=== PATIENT | female | born 1960 | race Asian ===

== ENCOUNTER 2016-09-19 16:10 | Emergency (ER) | payer OTHER ==
[~2016-09-19] VITALS: Ht 162.6 cm; Wt 59.0 kg
[2016-09-19] MEDS ORDERED: Ketorolac 30mg Inj IM ONE (16:45)
[2016-09-19] MEDS ORDERED: ACETAMINOPHEN-1 EAC1 ORAL (18:22)
[2016-09-19] MEDS ORDERED: IBUPROFEN600 MG ORAL (18:22)
[2016-09-19 18:37] VITALS: BP 128/72
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
--- NOTE | 2016-09-21 09:11 | Diagnostic Imaging Report ---
Indication: Pain. Chest trauma Comparison: None Findings: 4 views of the left rib cage obtained. No acute fracture is identified on the left unilateral rib series. There is no pneumothorax, evidence of a lung contusion or hemothorax. Impression: Negative left unilateral rib series
== END 2016-09-19 18:38 | disposition home or self-care (01) ==
LOC: EMR 16:30
DX: S20.212A Contusion of left front wall of thorax, initial encounter (principal); W19.XXXA Unspecified fall, initial encounter; Y92.89 Other specified places as the place of occurrence of the external cause
CPT/HCPCS: 71101; 96372; 99284; J1885

== ENCOUNTER 2019-11-21 11:48 | Emergency (ER) | payer OTHER ==
[~2019-11-21] VITALS: Ht 162.6 cm; Wt 62.6 kg
[~2019-11-21 11:48] MED LIST: ACETAMINOPHEN-1 EAC1 ORAL; IBUPROFEN600 MG ORAL
--- NOTE | 2019-11-21 12:03 | NUR ---
ED Nurse Note: Pt ambulated to ED, c/o groin pain x 3 weeks accompanied with lower back pain and dysuria. Pt appears to be in pain when ambulating. pt was able to provide a small amount of urine for urine sample. urine appears yellow, no odor noted. pt denies vaginal itching, swelling, redness. no buring upon urination.
[2019-11-21 12:05] VITALS: BP 123/82
[2019-11-21 12:27] LABS: APPEARANCE,URINE CLOUDY; COLOR,URINE YELLOW; KETONES,URINE NEGATIVE (NEGATIVE); PROTEIN,URINE 1+ (NEGATIVE)
[2019-11-21 12:28] LABS: BILIRUBIN, URINE NEGATIVE (NEGATIVE); GLUCOSE, URINE (UA) NEGATIVE (NEGATIVE); LEUKOCYTE ESTERASE ,URINE 2+ (NEGATIVE); NITRITE,URINE POSITIVE (NEGATIVE); UROBILINOGEN,URINE NORMAL MG/DL (0.0-1.0)
[2019-11-21] MEDS: cefTRIAXone 1 GM in NS 55 ML IVPB ONE ×2 (12:42→12:55)
[2019-11-21 12:52] LABS: EOSINOPHILS % (AUTO) 0.2 % (0.0-3.0); HEMATOCRIT 43.7 % (37.0-47.0); HEMOGLOBIN 14.3 G/DL (12.0-16.0); LYMPHOCYTES % (AUTO) 14.7 % (20.0-45.0); MEAN CORPUSCULAR VOLUME 86 FL (80-99); MONOCYTES % (AUTO) 4.2 % (1.0-10.0); PLATELET COUNT 234 K/UL (150-450); RED BLOOD COUNT 5.09 M/UL (4.20-5.40); WHITE BLOOD COUNT 10.9 K/UL (4.8-10.8)
--- NOTE | 2019-11-21 12:54 | NUR ---
ED Nurse Note: pt ambulated to restroom to urinate
--- NOTE | 2019-11-21 12:55 | NUR ---
ED Nurse Note: RN wasted Rocephin 1g due to contamination and overrided Rocephin 1g per pharmacy specialist. RN scaned the medication and administered.
[2019-11-21] MEDS ORDERED: Ketorolac 30mg Inj IV ONE (13:00)
[2019-11-21] MEDS ORDERED: Phenazopyridine 200mg tab ORAL ONE (13:00)
[2019-11-21 13:09] LABS: ANION GAP 7 mmol/L (5-15); BLOOD UREA NITROGEN 9 mg/dL (7-18); CARBON DIOXIDE 30 MMOL/L (21-32); CHLORIDE 103 MMOL/L (98-107); CREATININE 0.9 MG/DL (0.55-1.30); POTASSIUM 3.2 MMOL/L (3.5-5.1); SODIUM 139 MMOL/L (136-145)
[2019-11-21 13:16] LABS: ALANINE AMINOTRANSFERASE 15 U/L (12-78); ALBUMIN 3.7 G/DL (3.4-5.0); ALBUMIN/GLOBULIN RATIO 0.9 (1.0-2.7); ALKALINE PHOSPHATASE 76 U/L (46-116); ASPARTATE AMINO TRANSFERASE 14 U/L (15-37); BILIRUBIN,TOTAL 0.8 MG/DL (0.2-1.0)
[2019-11-21] MEDS ORDERED: CEPHALEXIN500 MG ORAL (13:35)
[2019-11-21] MEDS ORDERED: PHENAZOPYRIDIN200 MG ORAL (13:35)
--- NOTE | 2019-11-21 13:45 | NUR ---
ED Nurse Note: Pt wishes to finished half L of NS before DC Addendum: 11/21/19 at 1355 by PDELEON ED Nurse Note: Pt wishes to *finish half L of NS before DC
[2019-11-21 14:05] VITALS: BP 115/79
--- NOTE | 2019-11-21 14:05 | NUR ---
ER DISCHARGE NOTE: Patient is cleared to be discharged per ERMD, pt is aox4, on room air, with stable vital signs. pt was given dc and prescription instructions, pt was able to verbalize understanding, pt id band and iv site removed without complications. pt is able to ambulate with steady gait. pt took all belongings.
--- NOTE | 2019-11-23 14:31 | Emergency Room Report ---
History of Present Illness General Chief Complaint: Female Urogenital Problems Source: Patient Present Illness [facility] Patient 59-year-old female presents after increased dysuria and urinary frequency. She reports having multiple episodes of urinary urgency. She reports having decreased urine output. Denies any fever or flank pain. Reports having suprapubic discomfort. Prior history of chronic back pain. Denies any change in ambulation. Denies any recent trauma. Allergies: Coded Allergies: No Known Allergies (Unverified , 09/19/16) COVID-19 Screening Contact w/high risk pt: No Experienced COVID-19 symptoms?: No COVID-19 Testing performed SOFTWARE RELEASE ENGINEER: No Patient History Past Medical History: see triage record Reviewed Nursing Documentation: PMH: Agreed; PSxH: Agreed Nursing Documentation-PMH Past Medical History: No Stated History Review of Systems All Other Systems: negative except mentioned in HPI Physical Exam Vital Signs Date Time Temp Pulse Resp B/P (MAP) Pulse Ox O2 Delivery O2 Flow Rate FiO2 11/21/19 11:50 99.1 83 20 123/82 (96) 98 Room Air Sp02 EP Interpretation: reviewed, normal General Appearance: normal inspection, well appearing, no apparent distress, alert, GCS 15 Head: atraumatic ENT: normal ENT inspection, hearing grossly normal, normal voice Neck: normal inspection, full range of motion, supple, no bony tend Respiratory: normal inspection, lungs clear, normal breath sounds, no respiratory distress, no retraction, no wheezing Cardiovascular #1: regular rate, rhythm, no edema Gastrointestinal: normal inspection, normal bowel sounds, non tender, soft, no guarding, no hernia Genitourinary: no CVA tenderness Musculoskeletal: normal inspection, back normal, normal range of motion Neurologic: alert, motor strength/tone normal, claim benefit specialist III-XII nml as tested, oriented x3, responsive, speech normal, normal inspection Psychiatric: normal inspection, judgement/insight normal, mood/affect normal Medical Decision Making Diagnostic Impression: Primary Impression: Urinary tract infection Additional Impression: Hypokalemia ER Course Patient presented for dysuria. Differential diagnosis include was not limited to urinary tract infection, pyelonephritis, urinary retention among others. Because of complexity of patient's case laboratory tests were ordered. Patient was given IV fluids as well as IV antibiotics. She was noted to have No evidence of urinary retention on bedside ultrasound. Laboratory testing shows some evidence of urinary tract infection. Patient was given prescription for oral antibiotics after IV Rocephin in the emergency department. She was also noted to have normal white blood count. Patient was advised to have her urine rechecked with primary care physician. She is advised to return if worse. Patient was agreeable with discharge plan. The patient is advised to follow up with primary care doctor in 1-2 days. Patient is advised to return if any worsening condition or if any changes in status that are concerning. This report is dictated with [employer] hand hardener software which may occasionally lead to discrepancies related to use of this software. Labs Test 11/21/19 12:00 11/21/19 12:35 Urine Color Yellow Urine Appearance Cloudy Urine pH 5.0 (4.5-8.0) Urine Specific [place] 1.025 (1.005-1.035) Urine Protein 1+ (NEGATIVE) Urine Glucose (UA) Negative (NEGATIVE) Urine Ketones Negative (NEGATIVE) Urine Blood 4+ (NEGATIVE) Urine Nitrite Positive (NEGATIVE) Urine Bilirubin Negative (NEGATIVE) Urine Urobilinogen Normal MG/DL (0.0-1.0) Urine Leukocyte Esterase 2+ (NEGATIVE) Urine RBC 20-30 /HPF (0 - 2) Urine WBC 40-60 /HPF (0 - 2) Urine Squamous Epithelial Cells Few /LPF (NONE/OCC) Urine Bacteria Moderate /HPF (NONE) White Blood Count 10.9 K/UL (4.8-10.8) Red Blood Count 5.09 M/UL (4.20-5.40) Hemoglobin 14.3 G/DL (12.0-16.0) Hematocrit 43.7 % (37.0-47.0) Mean Corpuscular Volume 86 FL (80-99) Mean Corpuscular Hemoglobin 28.2 PG (27.0-31.0) Mean Corpuscular Hemoglobin Concent 32.8 G/DL (32.0-36.0) Red Cell Distribution Width 12.0 % (11.6-14.8) Platelet Count 234 K/UL (150-450) Mean Platelet Volume 6.6 FL (6.5-10.1) Neutrophils (%) (Auto) 80.0 % (45.0-75.0) Lymphocytes (%) (Auto) 14.7 % (20.0-45.0) Monocytes (%) (Auto) 4.2 % (1.0-10.0) Eosinophils (%) (Auto) 0.2 % (0.0-3.0) Basophils (%) (Auto) 1.0 % (0.0-2.0) Sodium Level 139 MMOL/L (136-145) Potassium Level 3.2 MMOL/L (3.5-5.1) Chloride Level 103 MMOL/L (98-107) Carbon Dioxide Level 30 MMOL/L (21-32) Anion Gap 7 mmol/L (5-15) Blood Urea Nitrogen 9 mg/dL (7-18) Creatinine 0.9 MG/DL (0.55-1.30) Estimat Glomerular Filtration Rate > 60 mL/min (>60) Glucose Level 98 MG/DL (74-106) Calcium Level 9.0 MG/DL (8.5-10.1) Total Bilirubin 0.8 MG/DL (0.2-1.0) Aspartate Amino Transf (AST/SGOT) 14 U/L (15-37) Alanine Aminotransferase (ALT/SGPT) 15 U/L (12-78) Alkaline Phosphatase 76 U/L (46-116) Total Protein 7.6 G/DL (6.4-8.2) Albumin 3.7 G/DL (3.4-5.0) Globulin 3.9 g/dL Albumin/Globulin Ratio 0.9 (1.0-2.7) Last Vital Signs Date Time Temp Pulse Resp B/P (MAP) Pulse Ox O2 Delivery O2 Flow Rate FiO2 11/21/19 14:05 99.0 74 19 115/79 100 Room Air Status: improved Disposition: HOME, SELF-CARE Condition: Stable Scripts Phenazopyridine Hcl* (PYRIDIUM*) 200 Mg Tablet 200 MG ORAL THREE TIMES A DAY, #14 TAB 0 Refills Prov: Janes Ruiz MD 11/21/19 Cephalexin* (KEFLEX*) 500 Mg Capsule 500 MG ORAL EVERY 6 HOURS, #28 CAP Prov: Janes Ruiz MD 11/21/19 Patient Instructions: Urinary Tract Infection Additional Instructions: Follow up with your doctor for recheck for clearance of urinary infection. Return if worse. Janes Ruiz MD Nov 23, 2019 14:31
== END 2019-11-21 14:05 | disposition home or self-care (01) ==
LOC: EMR 12:11
DX: N39.0 Urinary tract infection, site not specified (principal); E87.6 Hypokalemia
CPT/HCPCS: 36415; 80053; 81003; 85025; 87086; 87181; 96361; 96365; 96375; J0696; J1885; J7030; Z7502; 99284; J8499

== ENCOUNTER 2020-03-15 14:14 | Emergency (ER) | payer OTHER ==
[~2020-03-15] VITALS: Ht 162.6 cm; Wt 61.2 kg
[~2020-03-15 14:14] MED LIST changes: +CEPHALEXIN500 MG ORAL; +PHENAZOPYRIDIN200 MG ORAL
[2020-03-15 14:56] VITALS: BP 100/63
--- NOTE | 2020-03-15 14:57 | NUR ---
ED Nurse Note:pt. came with bilateral chronic hip pain, also groin and knees pain
--- NOTE | 2020-03-15 16:35 | Emergency Room Report ---
History of Present Illness General Chief Complaint: Pain Source: Patient Present Illness HPI 60-year-old female presents to the emergency department complaining of bilateral hip pain with acute exacerbation x1 week. Patient reports that she has been battling chronic low back pain as well sacral pain x2 to 3 years. Patient reports she has had multiple imaging studies from x-rays to CTs and MRIs regarding these issues and ultimately was diagnosed with stenosis. Patient is awaiting appointment to see orthopedist whom specializes in the hips as her current orthopedist only specializes in the spine. Patient denies significant trauma or fall. She reports rapid progression x1 week of bilateral hip pain. She reports some pain will radiate down the front of the thighs towards the knees. Patient reports pain with weightbearing especially "carrying groceries ". Patient reports that pain is exacerbated with prolonged standing or excessive walking. Patient reports that she has been having to use the electric shopping carts at stores recently because she cannot tolerate shopping while ambulating on her own. Patient denies paresthesias. She denies sharp shooting electrical pains. She denies rashes. She denies abdominal pain or tenderness. She denies fevers or chills. She denies swollen tender lymph nodes. She reports history of arthritis in the back. No other aggravating or relieving factors at this time. Allergies: Coded Allergies: No Known Allergies (Unverified , 09/19/16) COVID-19 Screening Contact w/high risk pt: No Experienced COVID-19 symptoms?: No COVID-19 Testing performed DIRECTOR OF FLIGHT OPERATIONS: No Patient History Past Medical History: see triage record Past Surgical History: none Pertinent Family History: none Now: No Reviewed Nursing Documentation: PMH: Agreed; PSxH: Agreed Nursing Documentation-PMH Past Medical History: No History, Except For Review of Systems All Other Systems: negative except mentioned in HPI Physical Exam Vital Signs Date Time Temp Pulse Resp B/P (MAP) Pulse Ox O2 Delivery O2 Flow Rate FiO2 03/15/20 14:31 97.5 80 16 100/63 (75) 99 Room Air Sp02 EP Interpretation: reviewed, normal General Appearance: no apparent distress, alert, GCS 15, non-toxic Head: normocephalic, atraumatic Eyes: bilateral eye normal inspection, bilateral eye PERRL ENT: hearing grossly normal, normal voice Neck: full range of motion Respiratory: lungs clear, normal breath sounds, speaking full sentences Cardiovascular #1: regular rate, rhythm, no edema, normal capillary refill Cardiovascular #2: 2+ dorsalis pedis (R), 2+ dorsalis pedis (L) Gastrointestinal: non tender, soft Genitourinary: normal inspection, no CVA tenderness Musculoskeletal: tender - TTP to the lateral and anterior aspects of the hips bilaterally, no obvious deformity. No leg length discrepancy. No cracking/grinding or crepitus upon passive range of motion testing. No bruises or swelling. Full range of motion in the knees without clicking. No instability/laxity upon stress testing of the bilateral knees. Neurologic: alert, motor strength/tone normal, oriented x3, sensory intact, responsive, speech normal Psychiatric: judgement/insight normal Skin: no rash, normal color Medical Decision Making PA Attestation Dr. Donohue Is my supervising Physician whom patient management has been discussed with. Diagnostic Impression: Primary Impression: Subchondral bone cyst Additional Impressions: Hip pain DJD (degenerative joint disease) of pelvis ER Course 60-year-old female presents to the emergency department complaining of bilateral hip pain with acute exacerbation x1 week. Patient reports that she has been battling chronic low back pain as well sacral pain x2 to 3 years. Patient reports she has had multiple imaging studies from x-rays to CTs and MRIs regarding these issues and ultimately was diagnosed with stenosis. Patient is awaiting appointment to see orthopedist whom specializes in the hips as her current orthopedist only specializes in the spine. Patient denies significant trauma or fall. She reports rapid progression x1 week of bilateral hip pain. She reports some pain will radiate down the front of the thighs towards the knees. Patient reports pain with weightbearing especially "carrying groceries ". Patient reports that pain is exacerbated with prolonged standing or excessive walking. Patient reports that she has been having to use the electric shopping carts at stores recently because she cannot tolerate shopping while ambulating on her own. Patient denies paresthesias. She denies sharp shooting electrical pains. She denies rashes. She denies abdominal pain or tenderness. She denies fevers or chills. She denies swollen tender lymph nodes. She reports history of arthritis in the back. No other aggravating or relieving factors at this time. Ddx considered but are not limited to Fracture, dislocation, contusion, Sprain/Strain/Spasm, degenerative changes/arthritis, avascular necrosis, or neoplastic mets just to name a few. Vital signs: are WNL, pt. is afebrile. H&PE are most consistent with musculoskeletal injury will perform imaging to r/o fractures/dislocations. Patient does not demonstrate saddle anesthesia or symptoms of cauda equina syndrome. Strength is equal bilaterally in lower extremities. ORDERS: - CT Pelvis No Contrast: ED INTERVENTIONS: - Toradol IM -I do not identify an emergent condition at this time. With current presentation, pt. is stable for close outpatient follow up and conservative treatment. D/w pt. to return promptly to ED with worsening or new symptoms.- Pt. verbalizes' understanding and agreement with proposed treatment plan. DISCHARGE: At this time pt. is stable for d/c to home. Will provide printed patient care instructions, and any necessary prescriptions. Care plan and follow up instructions have been discussed with the patient prior to discharge. CT/MRI/US Diagnostic Results CT/MRI/US Diagnostic Results : Imaging Test Ordered: CT pelvis no contrast Impression " Impression: Degenerative changes of the bilateral hips. No acute bony trauma Note that internal derangement cannot be excluded on CT. Consider MRI if there is high clinical suspicion for such ." --Per official radiology report- Please see report for specific details. Last Vital Signs Date Time Temp Pulse Resp B/P (MAP) Pulse Ox O2 Delivery O2 Flow Rate FiO2 03/15/20 14:56 97.5 80 16 100/63 99 Room Air Disposition: HOME, SELF-CARE Condition: Stable Scripts Prednisone* (PREDNISONE*) 20 Mg Tablet 40 MG ORAL DAILY for 5 Days, #10 TAB Prov: Dipti White 03/15/20 Diclofenac Sod* (VOLTAREN*) 50 Mg Tablet.dr 50 MG ORAL THREE TIMES A DAY for 7 Days, #21 TAB Prov: Dipti White 03/15/20 Referrals: [facility],REFERR[facility] (PCP) Patient Instructions: Hip Pain Additional Instructions: ~ ~ An emergent medical condition has not been identified based on this patients presentation, exam and any necessary testing/imaging. The patient is determined to be stable for outpatient follow-up and management of symptoms by a primary care provider. Take medications as directed. Do not drink alcohol, drive, or operate heavy machinery while taking Robaxin as this may cause drowsiness. Follow up with an [facility] in 3-5 days, even if your symptoms have resolved. If symptoms persist MRI may be required at the discretion of your PCP or Ortho Specialist. --Please review list of primary care clinics, if you do not already have a primary care provider who can give you an Orthopedic Referral. Return sooner to ED if new symptoms occur, or current symptoms become worse. - Please note that this Emergency Department Report was dictated using [employer] hr manager technology software, occasionally this can lead to erroneous entry secondary to interpretation by the dictation equipment. Dipti White Mar 15, 2020 16:35
--- NOTE | 2020-03-15 16:50 | Diagnostic Imaging Report ---
Indication: Chronic bilateral hip pain Technique: Noncontrast spiral acquisitions obtained through the pelvis. Multiplanar reconstructions generated. Total dose length product 169 mGycm. CTDIvol(s) 5 mGy. Dose reduction achieved using automated exposure control Comparison: none Findings: No evidence of acute fracture. No dislocation. On the right, the superior aspect of the joint space is markedly narrowed. There are very large subchondral cysts within the acetabulum as well as some subchondral sclerosis. On the left, there is also narrowing of the superior joint space, slightly less severe than on the contralateral side. Likewise noted are large subchondral on the acetabular side of the joint. Also noted are degenerative changes of the lumbosacral junction. The included pelvic viscera demonstrate a few diverticula.. Impression: Degenerative changes of the bilateral hips. No acute bony trauma Note that internal derangement cannot be excluded on CT. Consider MRI if there is high clinical suspicion for such The CT scanner at [facility] is accredited by the [employer] [place] [employer] and the scans are performed using protocols designed to limit radiation exposure to as low as reasonably achievable to attain images of sufficient resolution adequate for diagnostic evaluation.
[2020-03-15] MEDS: Ketorolac 30mg Inj IM ONE (17:05)
[2020-03-15] MEDS ORDERED: PREDNISONE20 MG ORAL (17:15)
[2020-03-15] MEDS ORDERED: DICLOFENAC SODI50 MG ORAL (17:15)
[2020-03-15 17:30] VITALS: BP 100/63
--- NOTE | 2020-03-15 17:30 | NUR ---
ED Nurse Note: Pt cleared by health care Provider for discharge. DC instructions/prescription was given and explained to pt and verbalized understanding of teachings. All medical deviecs such as ID band removed. Pt is AAO x4, ambulatory and left with all personal belongings.
== END 2020-03-15 17:30 | disposition home or self-care (01) ==
LOC: EMR 15:04
DX: M85.68 Other cyst of bone, other site (principal); M25.552 Pain in left hip; M25.551 Pain in right hip; M19.09 Primary osteoarthritis, other specified site
CPT/HCPCS: 72192; 96372; J1885; Z7502; 99284

== ENCOUNTER 2020-06-21 10:33 | Emergency (ER) | payer OTHER ==
[~2020-06-21] VITALS: Ht 162.6 cm; Wt 62.6 kg
[~2020-06-21 10:33] MED LIST changes: +DICLOFENAC SODI50 MG ORAL; +PREDNISONE20 MG ORAL
[2020-06-21 10:58] VITALS: BP 124/79
--- NOTE | 2020-06-21 11:01 | NUR ---
pt arrives to ER with complaints of bilateral hip pain with difficulty walking. pt states history of hip dysplagia. pt states walking to the ER but with taking small steps. pt describes pain as a shooting pain down her legs. pt states previous imaging.
[2020-06-21] MEDS ORDERED: HYDROCODON-ACE1 EA15 ORAL (11:14)
--- NOTE | 2020-06-21 11:20 | Emergency Room Report ---
History of Present Illness General Chief Complaint: Pain Source: Patient Present Illness HPI Disclaimer: Please note that this report is being documented using [employer] technology. This can lead to erroneous entry secondary to incorrect interpretation by the dictating instrument. HPI: 60-year-old female presents with hip and leg pain. 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 She reports pain radiating from bone hips down to the knees into the toes. Chronic aching of the thighs, knees and ankles. This has been going on for approximately 9 months. She does not recall specific injury. She has a history of bilateral hip dysplasia has had CT, MRI of the spine and pelvis over the past several months. She follows with orthopedic surgery and is pending approval for surgery to remove subchondral cysts and acetabular revision. Patient had previously been following with pain management but stopped seeing them. She has not scheduled to see her new touch up painter for another 3 weeks. She denies urinary retention, fecal incontinence, loss of sensation. Ambulating with a steady gait. Denies new fall or injury. Denies fever chills. Does not inject any medications. She participates in physical therapy regularly. PMH: Reviewed PSH: Reviewed Allergies: Reviewed Social Hx: Reviewed Allergies: Coded Allergies: No Known Allergies (Unverified , 09/19/16) COVID-19 Screening Contact w/high risk pt: No Experienced COVID-19 symptoms?: No COVID-19 Testing performed CATTLE KILLER: No Review of Systems All Other Systems: negative except mentioned in HPI Physical Exam Vital Signs Date Time Temp Pulse Resp B/P (MAP) Pulse Ox O2 Delivery O2 Flow Rate FiO2 06/21/20 10:38 97.9 93 20 124/79 (94) 96 Room Air General: Awake and alert, no acute distress HEENT: NC/AT. EOMI. Resp: Normal work of breathing Skin: Intact. No abrasions, laceration or rash over the exposed skin MSK: Normal tone and bulk. Moving all extremities. No obvious deformity. Able to straight leg raise bilaterally. Ambulating with steady gait. Strength is 5/5 at the hips, knees and ankles. Neuro: Awake and alert. Mentating appropriately. No saddle anesthesia. Medical Decision Making Diagnostic Impression: Primary Impression: DJD (degenerative joint disease) of pelvis Additional Impression: Hip pain ER Course Is a 60-year-old female presenting with bilateral hip and leg pain since October 2019. Patient has had extensive work-up both here and other facilities including CTs, MRIs, orthopedic surgery evaluation, pain management consultation and physical therapy. She is currently pending orthopedic surgery approval. No new injury reported. No neuro deficit identified. Severe severe chronic ongoing issue for the patient but she has not seen pain management since deciding to switch providers. Will prescribe a short dose of analgesics until she can see her new specialist and follow-up with her PMD again. Do not believe she requires repeat imaging or lab work-up at this time. Will provide with a cane for added stability at patient request. She was given copies of the CT reports that she came here originally to obtain. Last Vital Signs Date Time Temp Pulse Resp B/P (MAP) Pulse Ox O2 Delivery O2 Flow Rate FiO2 06/21/20 10:58 97.9 20 124/79 96 Room Air 06/21/20 10:38 93 Disposition: HOME, SELF-CARE Condition: Stable Scripts Hydrocodone/Acetaminophen 5-325* (HYDROCODONE/ACETAMINOPHEN 5-325*) 1 Each Tablet 1 TAB ORAL Q6H PRN for For Pain, #12 TAB 0 Refills Prov: Abad Lim MD 06/21/20 Referrals: [facility], [facility] Additional Instructions: Please follow-up with your primary care doctor, touch up painter and orthopedic surgeon as soon as possible to discuss this emergency department visit and for reevaluation. If you have any new or worsening symptoms please return to the emergency department for reevaluation. Please note that this report is being documented using [employer] technology. This can lead to erroneous entry secondary to incorrect interpretation by the dictating instrument. Abad Lim MD Jun 21, 2020 11:20
[2020-06-21] MEDS ORDERED: Ketorolac 30mg Inj IM ONE (11:30)
== END 2020-06-21 11:44 | disposition home or self-care (01) ==
LOC: EMR 10:54
DX: M16.0 Bilateral primary osteoarthritis of hip (principal); M25.552 Pain in left hip; M25.551 Pain in right hip
CPT/HCPCS: 96372; J1885; Z7502; 99283